=== PATIENT | male | born 1995 | race Two or more races ===

== ENCOUNTER 2020-01-14 21:10 | Emergency (ER) | payer OTHER ==
--- NOTE | 2020-01-14 21:30 | EDM.PDOC ---
ED HPI GENERAL MEDICAL PROBLEM - General Chief Complaint: Skin Complaint Stated Complaint: METAL PARTICLES EMBEDDED IN FOREARM Time Seen by Provider: 01/14/20 21:13 - History of Present Illness INITIAL COMMENTS - FREE TEXT/NARRATIVE: History of present illness: [] Was working with a valve that exploded and rust particles were spewed all over his left forearm an hour prior to arrival and now with movement of the shoulder he has a some numbness and discomfort in the entire left upper extremity like a stocking glove. Tetanus shot was more than 10 years ago. Review of systems: As per history of present illness and below otherwise all systems reviewed and negative. Past medical history: As per history of present illness and as reviewed below otherwise noncontributory. Surgical history: As per history of present illness and as reviewed below otherwise noncontributory. Social history: No reported history of drug or alcohol abuse. Family history: As per history of present illness and as reviewed below otherwise noncontributory. Physical exam: Constitutional - well developed, well-nourished and in no acute distress HEENT - normocephalic, no evidence of trauma - external nose and mouth normal - no mass in neck and no JVD - mucosae moist EYES - full EOM, PERRL, no icterus - no evidence of inflammation, injection, or drainage Respiratory - no respiratory distress, equal bilateral expansion Vascular -capillary refill and pulses are intact in the distal left upper extremity Musculoskeletal no gross deformity of long bones or joints - no tenderness, swelling or edema Neurologic - Alert and oriented times four - CN II-XII grossly intact - motor sensory and coordination symmetrically normal -left upper extremity has intact sensation in median ulnar and radial distribution Psychiatric - appropriate mood and affect with normal thought content Hematologic - No petechiae or purpura - mucosa appropriate color and sclera not pale - normal nail bed color and refill Integument -there are multiple specks of superficial rust colored is on the volar forearm with 1 slightly larger apparent tiny puncture wound in the middle of the volar forearm lies no rash or evidence of trauma - normal turgor Diagnostics: X-ray revealed no foreign body in the soft tissues [] Therapeutics: [] Impression: Contusion to left forearm, foreign matter in the skin. [] Plan: [] Definitive disposition and diagnosis as appropriate pending reevaluation and review of above. left forearm Pain Score (Numeric/FACES): 2 - Related Data Allergies Allergy/AdvReac Type Severity Reaction Status Date / Time No Known Allergies Allergy Verified 01/14/20 21:22 Home Meds: Home Meds methylPREDNISolone [Medrol Dose Pack] 4 mg PO DAILY #21 tab 01/14/20 [Rx] Past Medical History - Past Health History Medical/Surgical History: Denies Medical/Surgical History Social & Family History - Family History Family Medical History: Noncontributory - Tobacco Use Smoking Status *Q: Never Smoker - Caffeine Use Caffeine Use: Reports: Coffee - Recreational Drug Use Recreational Drug Use: No ED ROS GENERAL - Review of Systems Review Of Systems: Comprehensive ROS is negative, except as noted in HPI. ED EXAM, SKIN/RASH Exam: See Below Text/Narrative:: My physical exam is any HPI Course - Vital Signs Last Recorded V/S: Last Vital Signs Temp 97.6 F 01/14/20 21:19 Pulse 76 01/14/20 21:19 Resp 18 01/14/20 21:19 BP 144/83 H 01/14/20 21:19 Pulse Ox 99 01/14/20 21:19 - Orders/Labs/Meds Orders: Active Orders 24 hr Category Date Time Status Vaccines to be Administered [RC] PER UNIT ROUTINE Care 01/14/20 21:37 Active Forearm 2V Lt [CR] Stat Exams 01/14/20 21:30 Taken Meds: Medications Discontinued Medications Generic Name Dose Route Start Last Admin Trade Name Freq PRN Reason Stop Dose Admin Diphtheria/Tetanus/Acell Pertussis 0.5 ml 01/14/20 21:37 01/14/20 21:48 Adacel IM 01/14/20 21:38 0.5 ml .ONCE ONE Administration Departure - Departure Time of Disposition: 22:23 Disposition: Home, Self-Care 01 Condition: Good Clinical Impression: Blast injury, Foreign body (FB) in soft tissue - Discharge Information Referrals: PCP,None [Primary Care Provider] - Forms: ED Department Discharge Additional Instructions: The following information is given to patients seen in the emergency department who are being discharged to home. This information is to outline your options for follow-up care. We provide all patients seen in our emergency department with a follow-up referral. The need for follow-up, as well as the timing and circumstances, are variable depending upon the specifics of your emergency department visit. If you don't have a primary care physician on staff, we will provide you with a referral. We always advise you to contact your personal physician following an emergency department visit to inform them of the circumstance of the visit and for follow-up with them and/or the need for any referrals to a consulting specialist. The emergency department will also refer you to a specialist when appropriate. This referral assures that you have the opportunity for follow-up care with a specialist. All of these measure are taken in an effort to provide you with optimal care, which includes your follow-up. Under all circumstances we always encourage you to contact your private ysician who remains a resource for coordinating your care. When calling for follow-up care, please make the office aware that this follow-up is from your recent emergency room visit. If for any reason you are refused follow-up, please contact the [facility] Emergency Department at and asked to speak to the emergency department charge nurse. Sepsis Event Note (ED) - Evaluation Sepsis Screening Result: No Definite Risk - Focused Exam Vital Signs: Vital Signs Temp Pulse Resp BP Pulse Ox 01/14/20 21:19 97.6 F 76 18 144/83 H 99 - My Orders Last 24 Hours: My Active Orders 01/14/20 21:30 Forearm 2V Lt [CR] Stat 01/14/20 21:37 Vaccines to be Administered [RC] PER UNIT ROUTINE - Assessment/Plan Last 24 Hours: My Active Orders 01/14/20 21:30 Forearm 2V Lt [CR] Stat 01/14/20 21:37 Vaccines to be Administered [RC] PER UNIT ROUTINE
[2020-01-14] MEDS ORDERED: Diphtheria,Pertussis(Acell),Tetanus Vaccine 0.5 ML Syringe IM ONE (21:37)
--- NOTE | 2020-01-14 23:02 | CR ---
INDICATION: Forearm injury with foreign body TECHNIQUE: Forearm radiograph 2 views left COMPARISON: None FINDINGS: Bone: No acute fractures or aggressive bone lesions are identified. Joint: The visualized radiocarpal and elbow joints are unremarkable, but the elbow joint is not profiled. If there is pain or tenderness in this region, dedicated views of the elbow are recommended. Soft tissue: Unremarkable. No radiopaque foreign bodies are seen. IMPRESSION: 1. No acute osseous injuries or abnormalities are noted. Dictated by: Michael Tiwari MD @ 01/14/2020 23:01:32 (Electronically Signed)
== END 2020-01-14 22:40 | disposition home or self-care (01) ==
LOC: MW.ED 21:10
DX: S51.842A Puncture wound with foreign body of left forearm, initial encounter (principal); Z23 Encounter for immunization; W45.8XXA Other foreign body or object entering through skin, initial encounter
CPT/HCPCS: 73090-26-LT; 73090-LT; 90471; 90715; 99284-25